=== PATIENT | female | born 1990 | race Caucasian/White ===

== ENCOUNTER 2018-08-16 17:42 | Inpatient (IN) | payer OTHER ==
[2018-08-16] MEDS ORDERED: Lactated Ringers 1000 ML Bag* 1,000 ML IV ONE (19:03)
[2018-08-16] MEDS ORDERED: Dinoprostone* 10 MG VAG.SUPP VAGINAL ONE (19:03)
[2018-08-16 19:15] LABS: Urine Appearance Cloudy; Urine Bacteria Absent (Absent); Urine Bilirubin Negative (Negative); Urine Blood Negative (Negative); Urine Color Yellow; Urine Glucose Negative (Negative); Urine Ketones Negative (Negative); Urine Nitrite Negative (Negative); Urine Protein Negative (Negative); Urine Red Blood Cell Trace(0-2/hpf) (Absent); Urine Specific Gravity 1.016 (1.010-1.030); Urine Urobilinogen Negative (Negative); Urine White Blood Cell Trace(0-5/hpf) (Absent)
--- NOTE | 2018-08-16 19:20 | HP ---
General Information - Reason for Visit ripening/induction - General Information Maternal Age: 28 Grav: 1 Para: 0 SAB: 0 IEA: 0 Estimated Due Date: 08/11/18 Determined By: Early Ultrasound Maternal Blood Type and Rh: A Positive - Results this Serology/RPR Result: Non-Reactive Rubella Result: Immune HBsAg Result: Negative HIV Result: Negative GBS Culture Result: Negative Past Medical History Pertinent Past Medical History: Non-Contributory Pertinent Past Surgical History: None Family History Comment: Father: hypertension - Antepartal Records Antepartal Records: Reviewed, Complicated by: - conceived with IUD in place, since removed Review of Systems Constitutional: Comfortable CV Complaint: No Respiratory: Shortness of Breath: No Gastrointestinal: No Nausea/Vomiting, Normal Bowel Movement Genitourinary: No Leaking Fluid Musculoskeletal: No Epigastric Pain Neurological: No Headache, No Visual Changes Movement: Normal Exam Allergies/Adverse Reactions: Allergies No Known Allergies Allergy (Verified 08/16/18 18:02) elevated BP's, see OBIX - Measurements Height: 5 ft 2 in Weight: 191 lb Weight in lbs: [phone] Body Mass Index (BMI): 34.9 Pre- Weight: 165 lb Weight Gained This : 26 lbs and 0 ozs - Exam Breast: - - soft, no masses Extremities: No Edema Heart: Normal Rhythm/Heart Sounds HEENT: No Significant Findings Lungs: Clear Bilaterally Reflexes: DTR 2+ - Abdominal Exam Abdomen Exam: Non-Tender - Ultrasound/Biophysical Profile Ultrasound Status: Not Done Targeted Exam Findings Estimated Weight: 7.5 lbs EFM Findings - External Monitor Findings Baseline Heart Rate: 140 External Monitor Findings: Accelerations Present, No Pattern of Variable or Late Decelerations, Variability Moderate, Baseline Stable External Monitor Findings Comment: category 1 Contractions: None Assessment/Plan - Assessment primip at 40 w 5 d for ripening/induction Elevated blood pressure - Plan Plan: Cervical Ripening, Admit - Anticipate Vaginal Delivery Plan Comment: will draw preeclampsia labs - Date/Time of Admission Date of Admission: 08/16/18 Time of Admission: 19:00
[2018-08-16] MEDS ORDERED: Lidocaine 1%* 5 ML VIAL ONE (19:24)
--- NOTE | 2018-08-16 19:54 | PN ---
Progress Note - Progress Note Date of Service: 08/16/18 Note: 1950: cervix 1cm/80%, vtx -1, posterior. Cervidil inserted. Will monitor per protocol, reevaluate prn
[2018-08-16 19:55] LABS: ABS Basophils 0 10^3/ul (0-0.2); ABS Eosinophils 0.1 10^3/ul (0-0.6); ABS Lymphocytes 1.9 10^3/ul (1.0-4.8); ABS Monocytes 0.6 10^3/ul (0-0.8); ABS Neutrophils 5.9 10^3/ul (1.5-7.7); ABS Nucleated RBC 0 10^3/ul; Eosinophil % 1.3 %; Hematocrit 38 % (35-47); Hemoglobin 12.9 g/dl (12.0-16.0); Lymphocyte % 22.1 %; Mean Corpuscular HGB Conc 34 g/dl (31-36); Mean Corpuscular Hemoglobin 30 pg (27-31); Mean Corpuscular Volume 87 fL (80-97); Mean Platelet Volume 11.2 fL (7.4-10.4); Nucleated Red Blood Cells % 0; Platelet Count 194 10^3/ul (150-450); Red Blood Count 4.33 10^6/ul (4.00-5.40); Red Cell Distribution Width 14 % (10.5-15); White Blood Count 8.5 10^3/ul (3.5-10.8)
[2018-08-16 20:27] LABS: Albumin 3.4 g/dL (3.2-5.2); Albumin/Globulin Ratio 1.1 (1-3); BUN/Creatinine Ratio 21.5 (8-20); Calcium 8.9 mg/dL (8.6-10.3); Globulin 3.1 g/dL (2-4); Potassium 3.9 mmol/L (3.5-5.0); Total Bilirubin 0.4 mg/dL (0.2-1.0); Total Protein 6.5 g/dL (6.4-8.9); Uric Acid 6.3 mg/dL (2.3-6.6)
[2018-08-17] MEDS ORDERED: Nalbuphine* 10 MG/ML 1 ML VIAL IV PRN (00:53)
[2018-08-17] MEDS ORDERED: Promethazine INJ(RESTRICTED)* 25 MG/ML 1 ML VIAL IV PRN (00:53)
[2018-08-17] MEDS ORDERED: Nalbuphine* 10 MG/ML 1 ML VIAL ONE (00:59)
[2018-08-17] MEDS ORDERED: Promethazine INJ(RESTRICTED)* 25 MG/ML 1 ML VIAL ONE (00:59)
[2018-08-17] MEDS: Lactated Ringers 1000 ML Bag* 1,000 ML IV SCH ×2 (05:29→06:39)
[2018-08-17] MEDS ORDERED: OBEPIDURAL* 250 ML EPIDURAL ONE (05:45)
[2018-08-17] MEDS ORDERED: Lactated Ringers 1000 ML Bag* 1,000 ML IV ONE (06:24)
[2018-08-17] MEDS ORDERED: Sodium Citrate/Citric Acid* 15 ML UDC PO PRN (06:24)
[2018-08-17] MEDS ORDERED: Phenylephrine IV* 40 MCG/ML 10 ML SYRINGE IV PUSH PRN ×2 (06:24)
[2018-08-17] MEDS ORDERED: Lactated Ringers 1000 ML Bag* 1,000 ML IV SCH ×2 (07:00→15:00)
[2018-08-17] MEDS ORDERED: OBEPIDURAL* 250 ML EPIDURAL SCH (07:00)
[2018-08-17] MEDS ORDERED: Phenylephrine INJ* 10 MG/ML 1 ML VIAL (10 MG) ONE (07:30)
--- NOTE | 2018-08-17 07:56 | PN ---
Progress Note - Progress Note Date of Service: 08/17/18 Note: Cervidil removed at midnight after pt became uncomfortable and baby sl tachycardia. Received Nubain/Phenergan at approx 0100 SROM mec stained fluid at approx 0455. Requested and received epidural at that point Now very comfortable. 1 episode of bradycardia after epidural, resolved with position changes. intermittent variable decels, otherwise mod variability Just had 5 min episode of bradycardia to 60, scalp electrode applied , fluid bolus given, O2 Cervix: fully dilated, 100%, vtx -1 contractions every 3 min Plan: will labor down, continue to monitor closely
--- NOTE | 2018-08-17 09:55 | PN ---
Progress Note - Progress Note Date of Service: 08/17/18 Note: S: Pt was able to rest with epidural. Starting to feel some vaginal pressure. O: BP 126/78 HR 96 T 98.1 FHT 130bpm. Moderate variability. +Accels. Rare variable decels with UCs. No further bradycardia UCs q 3 min VE: small lip of cervix right side/100%/vtx -1 A: IUP at 40-6/7 in labor s/p cervidal Meconium stained fluid Category II FHT, doubt metabolic acidemia P: Enc trial of bolus button. Close monitoring of maternal/ status. Anticipate trial of pushing soon.
[2018-08-17] MEDS ORDERED: Oxytocin in LR* 20 UNITS/1,000 ML BAG IVPB ONE (11:56)
[2018-08-17] MEDS ORDERED: Witch Hazel PAD* JAR ONE (13:18)
[2018-08-17] MEDS ORDERED: Dibucaine 1% 28.35 GM TUBE ONE (13:18)
[2018-08-17] MEDS ORDERED: EPHEDrine (Pressors)* 50 MG/ML VIAL ONE (13:28)
[2018-08-17] MEDS ORDERED: Acetaminophen TAB* 325 MG PO PRN (14:11)
[2018-08-17] MEDS ORDERED: Glycerin ADULT SUPP PR PRN (14:11)
[2018-08-17] MEDS ORDERED: Witch Hazel PAD* JAR TOPICAL PRN (14:11)
[2018-08-17] MEDS ORDERED: Dibucaine 1% 28.35 GM TUBE PR PRN (14:11)
--- NOTE | 2018-08-17 14:31 | PROCNOTE ---
[facility] OB: Delivery Note - Delivery A Date of : 08/17/18 Time of : 13:00 [place] Sex: Female Weight at : 7 lb 4 oz Score 1 Minute: 8 Score 5 Minutes: 9 Gestational Age in Weeks and Days at Delivery: 40 Weeks and 6 Days Delivery Method: Spontaneous Vaginal Labor: Induced - cervidil x1 Did Patient attempt ?: N/A, No Previous Amniotic Fluid: Meconium Estimated Blood Loss: 250 Anesthesia/Analgesia: CEI for Labor Anesthesia Comment: placed by Dr. Camarena Delivered By: Stephanie Michael - Nursery Level of Nursery: Regular/Bedside - Perineum Perineal Injury: 2nd Degree - repaired with 3-0 rapide, under local infiltration , 1 percent lido, and CEI, pt tolerated well Perineal Repair: By Delivering Practioner - Events Delivery Events of Note: Pitocin Only After Delivery, Supplemental O2 to Mother , Internal Scalp EKG - Risk for Falls Other Risk for Falls: none - Additional Delivery Notes Additional Delivery Notes: Pt admitted at 40+5 for a postdates IOL via Cervidil. Pt progressed to active labor after SROM to meconium stained fluid with expected progression to complete. Received CEI per pt request, with excellent relief. Length of labor 8 hours and 2 minutes, pt pushed x1 hour and 39 minutes. Category II FHT during second stage repetitive variable decels with pushing, rapid return to baseline, O2 by mask and IV fluids. Strong maternal pushing effort led to , liveborn female. OA to MAURICIO, shoulders followed easily. vigorous with spontaneous cry, heartbeat >110 BPM. Delivered to maternal abdomen. Cord clamped x2 and cut. Spontaneous delivery of intact placenta, membranes complete. Fundus firm to massage with IV pitocin infusing. Minimal bleeding noted. Careful inspection of perineum revealed second degree midline laceration, repaired in the usual fashion, anatomy restored, good homeostasis achieved. EBL 250ml. At time of note , mother and infant in stable condition, planning to breastfeed.
[2018-08-17] MEDS ORDERED: Oxytocin in LR* 20 UNITS/1,000 ML BAG IVPB SCH (15:00)
[2018-08-17] MEDS ORDERED: Simethicone TAB* 80 MG TAB.CHEW PO SCH (17:30)
[2018-08-17] MEDS: Ibuprofen TAB* 600 MG PO PRN ×2 (17:34→23:42)
[2018-08-17] MEDS: Docusate CAP* 100 MG PO SCH (21:42)
[2018-08-18] MEDS: Ibuprofen TAB* 600 MG PO PRN ×3 (05:37→20:54)
[2018-08-18 06:54] LABS: ABS Basophils 0 10^3/ul (0-0.2); ABS Eosinophils 0.1 10^3/ul (0-0.6); ABS Lymphocytes 2.8 10^3/ul (1.0-4.8); ABS Monocytes 0.9 10^3/ul (0-0.8); ABS Neutrophils 6.9 10^3/ul (1.5-7.7); ABS Nucleated RBC 0 10^3/ul; Eosinophil % 1.3 %; Hematocrit 26 % (35-47); Hemoglobin 8.8 g/dl (12.0-16.0); Lymphocyte % 25.8 %; Mean Corpuscular HGB Conc 34 g/dl (31-36); Mean Corpuscular Hemoglobin 30 pg (27-31); Mean Corpuscular Volume 89 fL (80-97); Mean Platelet Volume 10.4 fL (7.4-10.4); Nucleated Red Blood Cells % 0; Platelet Count 127 10^3/ul (150-450); Red Blood Count 2.93 10^6/ul (4.00-5.40); Red Cell Distribution Width 13 % (10.5-15); White Blood Count 10.7 10^3/ul (3.5-10.8)
[2018-08-18] MEDS: Docusate CAP* 100 MG PO SCH ×3 (08:26→20:55)
[2018-08-18] MEDS: Ferrous Gluconate TAB* 324 MG TAB PO SCH ×2 (08:26→20:55)
--- NOTE | 2018-08-18 16:30 | PTEDU ---
Patient Name: QUAN HOWARD QUAN HOWARD selected video: Follow Me Mum: [facility] [place] [facility] Successful to view on 12/2018 at 4:29:48 PM from [id number]
[2018-08-19] MEDS: Ibuprofen TAB* 600 MG PO PRN ×2 (04:07→09:52)
[2018-08-19 08:38] VITALS: BP 146/86
[2018-08-19] MEDS: Docusate CAP* 100 MG PO SCH (08:52)
[2018-08-19] MEDS: Ferrous Gluconate TAB* 324 MG TAB PO SCH (08:53)
== END 2018-08-19 11:22 | disposition home or self-care (01) | DRG 807 ==
LOC: MCHOBOUT 17:42 → MCHOB 18:47
PROVIDERS: ADMIT Advanced Practice Midwife; ATTEND Advanced Practice Midwife
PROC: 10E0XZZ Delivery of Products of Conception, External Approach (ICD-10-PCS; principal; 2018-08-17)
PROC: 0KQM0ZZ Repair Perineum Muscle, Open Approach (ICD-10-PCS; 2018-08-17)
PROC: 3E033VJ Introduction of Other Hormone into Peripheral Vein, Percutaneous Approach (ICD-10-PCS; 2018-08-17)
DX: O48.0 Post-term pregnancy (principal); Z37.0 Single live birth; Z3A.40 40 weeks gestation of pregnancy; O13.4 Gestational [pregnancy-induced] hypertension without significant proteinuria, complicating childbirth; O70.1 Second degree perineal laceration during delivery; O77.0 Labor and delivery complicated by meconium in amniotic fluid; O76 Abnormality in fetal heart rate and rhythm complicating labor and delivery; O90.81 Anemia of the puerperium; D64.9 Anemia, unspecified
CPT/HCPCS: 36415; 80053; 81003; 81015; 84550; 85025; 86850; 86900; 86901; 87086; A9270-GY; J2300; J2550

== ENCOUNTER 2020-10-28 14:07 | Inpatient (IN) ==
[2020-10-28] MEDS ORDERED: Buffered Lidocaine 1% SYRIN 1 ml INTRADERM ONE (15:16)
[2020-10-28] MEDS ORDERED: Lactated Ringers 1000 ml BAG 1,000 ML IV ONE ×2 (15:16→17:55)
[2020-10-28] MEDS ORDERED: OBEPIDURAL 250 ML EPIDURAL ONE (15:34)
[2020-10-28] MEDS ORDERED: Lactated Ringers 1000 ml BAG 1,000 ML IV SCH ×3 (16:00→22:00)
[2020-10-28 16:07] LABS: Hematocrit 38 % (35-47); Hemoglobin 12.9 g/dL (12.0-16.0); Mean Corpuscular HGB Conc 34 g/dL (31-36); Mean Corpuscular Hemoglobin 29 pg (27-31); Mean Corpuscular Volume 86 fL (80-97); Mean Platelet Volume 11.6 fL (7.4-10.4); Platelet Count 165 10^3/uL (150-450); Red Blood Count 4.38 10^6 /uL (3.70-4.87); Red Cell Distribution Width 13 % (10-15); White Blood Count 8.8 10^3/uL (3.5-10.8)
[2020-10-28 16:13] LABS: Activated Partial Thrombo Time 25.9 seconds (26.0-38.0); INR 0.94 (0.82-1.09)
[2020-10-28 16:22] LABS: Albumin 3.4 g/dL (3.2-5.2); Albumin/Globulin Ratio 1.1 (1-3); BUN/Creatinine Ratio 15.6 (8-20); Calcium 8.9 mg/dL (8.6-10.3); EGFR African American 130.1 (>60); EGFR Non-African American 107.5 (>60); Potassium 4.1 mmol/L (3.5-5.0); Total Bilirubin 0.5 mg/dL (0.2-1.0); Total Protein 6.4 g/dL (6.4-8.9)
[2020-10-28 16:38] LABS: Urine Benzodiazepine Screen None Detected (None Detect); Urine Cannabinoids Screen None Detected (None Detect); Urine Opiates Screen None Detected (None Detect)
[2020-10-28] MEDS ORDERED: Sodium Citrate/Citric Acid LIQ 15 ML UDC PO PRN (17:55)
[2020-10-28] MEDS ORDERED: Lactated Ringers 1000 ml BAG 500 ML IV PRN ×2 (17:55)
[2020-10-28] MEDS ORDERED: Phenylephrine 40 mcg/mL 10mL (400mcg) SYRINGE IV PUSH PRN ×2 (17:55)
[2020-10-28] MEDS ORDERED: OBEPIDURAL 250 ML EPIDURAL SCH (18:00)
[2020-10-28] MEDS ORDERED: Oxytocin in LR 20 UNITS/1,000 ML BAG IVPB ONE (20:55)
[2020-10-28] MEDS ORDERED: Witch Hazel PAD JAR TOPICAL PRN (21:06)
[2020-10-28] MEDS ORDERED: Dibucaine 1% OINT 28.35 GM TUBE PR PRN (21:06)
[2020-10-28] MEDS ORDERED: Oxytocin in LR 20 UNITS/1,000 ML BAG IVPB SCH (22:00)
[2020-10-29] MEDS ORDERED: Lidocaine 1% MPF 5 ML VIAL ONE (01:16)
[2020-10-29 07:34] LABS: ABS Eosinophils 0.1 10^3/ul (0-0.6); ABS Lymphocytes 2.2 10^3/ul (1.0-4.8); ABS Monocytes 0.6 10^3/ul (0-0.8); ABS Neutrophils 5.9 10^3/ul (1.5-7.7); Eosinophil % 0.9 %; Hematocrit 32 % (35-47); Mean Corpuscular HGB Conc 35 g/dL (31-36); Mean Corpuscular Hemoglobin 30 pg (27-31); Mean Corpuscular Volume 86 fL (80-97); Mean Platelet Volume 11.5 fL (7.4-10.4); Platelet Count 124 10^3/uL (150-450); Red Blood Count 3.71 10^6 /uL (3.70-4.87); Red Cell Distribution Width 13 % (10-15); White Blood Count 8.8 10^3/uL (3.5-10.8)
[2020-10-30 07:58] VITALS: BP 114/59
== END 2020-10-30 11:09 | disposition home or self-care (01) | DRG 807 ==
LOC: MCHOBOUT 14:07 → MCHOB 15:27
PROVIDERS: ADMIT Midwife; ATTEND Midwife

== ENCOUNTER 2024-06-25 05:55 | Observation (INO) ==
[2024-06-25 06:42] LABS: ABS Lymphocytes 0.8 10^3/uL (1.0-4.8); ABS Monocytes 1.2 10^3/uL (0.0-0.9); ABS Neutrophils 10.8 10^3/uL (1.5-7.6); ABS Nucleated RBC 0.01 10^3/ul; Hematocrit 40.7 % (35-45); Lymphocyte % 6.3 %; Mean Corpuscular Hemoglobin 30.7 pg (27-33); Mean Corpuscular Hgb Conc 34.3 g/dL (31-36); Mean Corpuscular Volume 89.3 fL (80-97); Mean Platelet Volume 9.9 fL (7.5-11.2); Platelet Count 201 10^3/uL (150-450); Red Blood Count 4.56 10^6/uL (3.63-4.92); Red Cell Distribution Width 12.2 % (12-17); White Blood Count 12.9 10^3/uL (3.8-11.8)
[2024-06-25] MEDS: cefTRIAXone 1 gm/50 mL D5W 1 GM/50 ML BAG IV ONE (06:50)
[2024-06-25] MEDS: Lactated Ringers SEPSIS* BAG 2,310 ML IV ONE (06:51)
[2024-06-25 06:53] LABS: Urine Appearance Extra Turbid; Urine Bilirubin Negative (Negative); Urine Blood 2+ (Negative); Urine Color Dark-Yellow; Urine Glucose Negative (Negative); Urine Ketones Negative (Negative); Urine Nitrite Negative (Negative); Urine Protein 2+ (>=100 mg/dL) (Negative); Urine Specific Gravity 1.017 (1.002-1.030); Urine Urobilinogen 1+ (Negative); Urine pH 6.5 (5.0-8.0)
[2024-06-25 07:10] LABS: ALT 22 U/L (7-52); AST 20 U/L (13-39); Albumin 4.3 g/dL (3.2-5.2); Albumin/Globulin Ratio 1.2 (1-3); Alkaline Phosphatase 49 U/L (35-149); Anion Gap 11 mmol/L (2-16); Blood Urea Nitrogen 10 mg/dL (6-24); C Reactive Protein 172.52 mg/L (<8.01); CO2 Carbon Dioxide 28 mmol/L (22-32); Calcium 9.2 mg/dL (8.6-10.3); Chloride 92 mmol/L (101-111); Globulin 3.5 g/dL (2-4); Glucose 125 mg/dL (70-100); Potassium 3.9 mmol/L (3.5-5.0); Sodium 131 mmol/L (135-145); Total Bilirubin 1.2 mg/dL (0.2-1.0); Total Protein 7.8 g/dL (6.4-8.9); eGFR CKD-EPI 74.9 (>60)
[2024-06-25 07:17] LABS: HCG Pregnancy < 0.60 mIU/mL
[2024-06-25 07:51] LABS: Urine Bacteria 1+ /HPF (Absent); Urine Red Blood Cell 3+(>10/hpf) /HPF (0-Trace); Urine Squamous Epithelial Cell Present /HPF (Absent); Urine Transitional Epithelial Present /HPF (Absent); Urine White Blood Cell 3+(>20/hpf) /HPF (0-Trace)
[2024-06-25] MEDS: Iohexol 300 (CONTRAST) 10 ML SDV IV ONE (08:32)
[2024-06-25] MEDS ORDERED: Zosyn per Pharmacy NOTE FOLLOW UP SCH (13:00)
[2024-06-25] MEDS ORDERED: Morphine 2 MG/ML SYRINGE IV PRN (13:01)
[2024-06-25] MEDS: Piperacillin/Tazobac 3.375 BAG 3.375 GM/100 ML BAG IV ONE (13:19)
[2024-06-25] MEDS: Lactated Ringers 1000 ml BAG 1,000 ML IV SCH (13:19)
[2024-06-25] MEDS: Morphine 2 MG/ML SYRINGE IV PRN (16:21)
[2024-06-25] MEDS: ZOSYN 3.375 GM Q8H per EXTENDED INFUSION IV SCH (18:03)
[2024-06-25 22:42] LABS: ABS Lymphocytes 1.5 10^3/uL (1.0-4.8); ABS Nucleated RBC 0.01 10^3/ul; Eosinophil % 0.1 %; Hematocrit 32.1 % (35-45); Hemoglobin 10.9 g/dL (11.5-14.3); Lymphocyte % 15.5 %; Mean Corpuscular Hemoglobin 30.7 pg (27-33); Mean Corpuscular Volume 90.3 fL (80-97); Mean Platelet Volume 9.5 fL (7.5-11.2); Nucleated Red Blood Cells % 0.1 %/100WBC (0.0-0.8); Platelet Count 134 10^3/uL (150-450); Red Blood Count 3.56 10^6/uL (3.63-4.92); White Blood Count 9.4 10^3/uL (3.8-11.8)
[2024-06-25 23:32] LABS: Calcium 8.1 mg/dL (8.6-10.3); Creatinine, Serum 0.86 mg/dL (0.51-0.95); Potassium 3.7 mmol/L (3.5-5.0); eGFR CKD-EPI 89.7 (>60)
[2024-06-26] MEDS: Ondansetron 4 mg VIAL 2 MG/ML 2 ml VIAL IV PRN (06:18)
[2024-06-26] MEDS: Morphine 2 MG/ML SYRINGE IV PRN (06:20)
[2024-06-26] MEDS: cefTRIAXone 2 gm/50 mL D5W 2 GM/50 ML BAG IV SCH (06:33)
[2024-06-26 11:27] LABS: ABS Monocytes 0.8 10^3/uL (0.0-0.9); ABS Neutrophils 6.5 10^3/uL (1.5-7.6); Eosinophil % 0.5 %; Hematocrit 32.8 % (35-45); Lymphocyte % 12.2 %; Mean Corpuscular Hemoglobin 30.7 pg (27-33); Mean Corpuscular Hgb Conc 33.6 g/dL (31-36); Mean Corpuscular Volume 91.3 fL (80-97); Mean Platelet Volume 9.9 fL (7.5-11.2); Platelet Count 140 10^3/uL (150-450); Red Blood Count 3.59 10^6/uL (3.63-4.92); White Blood Count 8.4 10^3/uL (3.8-11.8)
[2024-06-26 12:06] LABS: Albumin 3.1 g/dL (3.2-5.2); Albumin/Globulin Ratio 1.1 (1-3); Creatinine, Serum 0.71 mg/dL (0.51-0.95); Globulin 2.7 g/dL (2-4); Magnesium 1.5 mg/dL (1.9-2.7); Potassium 3.9 mmol/L (3.5-5.0); Total Bilirubin 0.6 mg/dL (0.2-1.0); Total Protein 5.8 g/dL (6.4-8.9); eGFR CKD-EPI 112.9 (>60)
[2024-06-26] MEDS: Magnesium Sulf 4 GM/100 ML IV 4,000 MG/100 ML BAG IVPB ONE (15:36)
[2024-06-27 08:44] LABS: ABS Eosinophils 0.1 10^3/uL (0.0-0.5); ABS Lymphocytes 1.1 10^3/uL (1.0-4.8); ABS Monocytes 0.5 10^3/uL (0.0-0.9); ABS Neutrophils 3.8 10^3/uL (1.5-7.6); Hematocrit 33.6 % (35-45); Hemoglobin 11.3 g/dL (11.5-14.3); Lymphocyte % 19.3 %; Mean Corpuscular Hemoglobin 30.4 pg (27-33); Mean Corpuscular Hgb Conc 33.6 g/dL (31-36); Mean Corpuscular Volume 90.7 fL (80-97); Nucleated Red Blood Cells % 0.1 %/100WBC (0.0-0.8); Platelet Count 142 10^3/uL (150-450); Red Blood Count 3.71 10^6/uL (3.63-4.92); Red Cell Distribution Width 12.1 % (12-17); White Blood Count 5.4 10^3/uL (3.8-11.8)
[2024-06-27 09:31] VITALS: BP 112/82
[2024-06-27 10:11] LABS: Calcium 8.1 mg/dL (8.6-10.3); Creatinine, Serum 0.64 mg/dL (0.51-0.95); eGFR CKD-EPI 117.4 (>60)
== END 2024-06-27 13:48 | disposition home or self-care (01) ==
LOC: ED 05:55 → EDHOLD 05:55 → MED 14:12
PROVIDERS: ADMIT Student in an Organized Health Care Education/Training Program; ATTEND Hospitalist